=== PATIENT | male | born 1985 | race African-American/Black ===

== ENCOUNTER 2018-11-20 00:52 | Emergency (ER) | payer MEDICARE, OTHER ==
[2018-11-20 01:02] VITALS: BP 112/67; PULSE 66; RESP 18; TEMP 98.7
[2018-11-20] MEDS ORDERED: IBUPROFEN 400 MG TAB PO STA (01:35)
--- NOTE | 2018-11-20 01:35 | ED ---
General Adult HPI - General Chief complaint: Skin/Abscess/Foreign Body Stated complaint: L Hand Pain Time Seen by Provider: 11/20/18 01:04 Source: patient Mode of arrival: ambulatory Limitations: no limitations - History of Present Illness Initial comments: This patient is a 32-year-old man who presents to have evaluation of a small lump that is been developing his wrist. He noted a few days ago. He states that if he moves the wrist a lot it is a little tender. He denies other symptoms. No fever or chills. He does do work with his hands. Patient was concerned that it may be a result of a bite. -: days(s) Location: right, upper extremity Radiation: non-radiation Quality: dull Consistency: constant Improves with: none Worsens with: none Associated Symptoms: denies other symptoms - Related Data Previous Rx's Medication Instructions Recorded Ibuprofen [Motrin] 600 mg PO Q8HR PRN #20 tab 11/20/18 Allergies Allergy/AdvReac Type Severity Reaction Status Date / Time No Known Allergies Allergy Verified 11/20/18 01:02 Review of Systems ROS Statement: Those systems with pertinent positive or pertinent negative responses have been documented in the HPI. ROS Other: All systems not noted in ROS Statement are negative. Constitutional: Denies: fever, chills Respiratory: Denies: cough, dyspnea Musculoskeletal: Reports: as per HPI, other (Lump near the wrist) Skin: Reports: as per HPI. Denies: rash, lesions Past Medical History Past Medical History: No Reported History History of Any Multi-Drug Resistant Organisms: None Reported Past Surgical History: No Surgical Hx Reported Past Psychological History: Bipolar Smoking Status: Current some day smoker Past Alcohol Use History: Occasional Past Drug Use History: None Reported General Exam Limitations: no limitations General appearance: alert, in no apparent distress Respiratory exam: Present: normal lung sounds bilaterally. Absent: respiratory distress, wheezes, rales, rhonchi, stridor Cardiovascular Exam: Present: other (Patient's radial and ulnar pulse strong and symmetric. Cap refill normal) Extremities exam: Present: normal inspection, normal capillary refill, other (Patient has an approximately 2 cm ganglion cyst at the right wrist. No evidence of superinfection. Minimal tenderness associated. Motor and sensory exam throughout the hand normal) Neurological exam: Present: alert. Absent: motor sensory deficit Skin exam: Present: warm, dry, intact, normal color. Absent: rash Course Vital Signs 11/20/18 00:58 Temperature 98.7 F Pulse Rate 66 Respiratory 18 Rate Blood Pressure 112/67 O2 Sat by Pulse 99 Oximetry Disposition Clinical Impression: Ganglion cyst Disposition: HOME SELF-CARE Condition: Good Instructions (If sedation given, give patient instructions): Ganglion Cysts (ED) Prescriptions: Ibuprofen [Motrin] 600 mg PO Q8HR PRN #20 tab PRN Reason: Pain Is patient prescribed a controlled substance at d/c from ED?: No Referrals: None,Stated [Primary Care Provider] - 1-2 days Marlo Back MD [STAFF PHYSICIAN] - 1-2 days
== END 2018-11-20 01:55 | disposition home or self-care (01) ==
LOC: EC 00:52
DX: M67.431 Ganglion, right wrist (principal); M79.642 Pain in left hand; F17.200 Nicotine dependence, unspecified, uncomplicated
CPT/HCPCS: 99283

== ENCOUNTER 2019-01-15 04:00 | Emergency (ER) | payer MEDICARE, OTHER ==
[2019-01-15 04:07] VITALS: RESP 18
--- NOTE | 2019-01-15 05:29 | ED ---
General Adult HPI - General Chief complaint: Recheck/Abnormal Lab/Rx Stated complaint: Trouble sleeping Time Seen by Provider: 01/15/19 04:09 Source: family Mode of arrival: ambulatory Limitations: no limitations - History of Present Illness Initial comments: is a 33-year-old gentleman presents the ER today reporting that he has been unable to sleep more than a couple hours consecutively each night for the past 2 weeks. Patient states that this began a couple weeks ago, he didn't know why he can't sleep. Patient states that he lays down he falls asleep for 1-2 hours in the wakes up and has trouble falling back asleep. Patient states he feels tired throughout the days. Patient states that he has tried multiple things including drinking a lot of caffeine earlier in the day hoping that that will cause him to crash later in the evening but he still not able to sleep. Patient also states that he feels like there is fluid around his heart and that when he stands up he can feel his heart moving around in his chest. - Related Data Previous Rx's Medication Instructions Recorded Ibuprofen [Motrin] 600 mg PO Q8HR PRN #30 tab 01/15/19 Allergies Allergy/AdvReac Type Severity Reaction Status Date / Time No Known Allergies Allergy Verified 01/15/19 19:06 Review of Systems ROS Statement: Those systems with pertinent positive or pertinent negative responses have been documented in the HPI. ROS Other: All systems not noted in ROS Statement are negative. Past Medical History Past Medical History: No Reported History History of Any Multi-Drug Resistant Organisms: None Reported Past Surgical History: No Surgical Hx Reported Past Psychological History: Bipolar Smoking Status: Current some day smoker Past Alcohol Use History: Occasional Past Drug Use History: None Reported General Exam - General Exam Comments Initial Comments: Physical Exam GENERAL: Patient is well-developed and well-nourished. Patient is nontoxic and well- hydrated and is in no distress. HENT: Normocephalic, Atraumatic. EYES: PERRL, EOMI PULMONARY: Unlabored respirations. No audible rales rhonchi or wheezing was noted. CARDIOVASCULAR: There is a regular rate and rhythm without any murmurs gallops or rubs. ABDOMEN: Soft and nontender with normal bowel sounds. SKIN: Skin is clear with no lesions or rashes and otherwise unremarkable. : Deferred NEUROLOGIC: Patient is alert and oriented x3. Moving all extremities spontaneously MUSCULOSKELETAL: Normal extremities with adequate strength and full range of motion. No lower extremity swelling or edema. No calf tenderness. PSYCHIATRIC: Normal psychiatric evaluation. Limitations: no limitations Course Vital Signs 01/15/19 01/15/19 04:03 05:57 Temperature 98.0 F 98.6 F Pulse Rate 85 74 Respiratory 18 18 Rate Blood Pressure 128/80 123/82 O2 Sat by Pulse 98 98 Oximetry Medical Decision Making - Medical Decision Making The patient was seen and evaluated history is obtained from patient and signed patient reporting difficulty sleeping for the past 2 weeks duration he has not tried any [id number] sleep aids. Has not tried any melatonin. He does admit to very poor sleep habits. He does admit to excessive caffeine intake. Appropriate sleep hygiene was discussed with patient I advised I will prescribe melatonin that he should take prior to bedtime. I advised the patient to not look at his phone prior to going to bed not have too much stimulus including television or lights on before going to bed. We discussed going to bed same time everyday in a darkened room. Patient also concerned that there is fluid around his heart states that he feels his heart moving around when he stands up. Bedside ultrasound showed normal heart with no signs of pericardial effusion. Patient was reassured. I intended to discharge the patient however was called to an emergency and was able to put in the discharge order. Patient remained in the emergency department for over 2 hours, upon reevaluation the patient was sleeping soundly. At this time is still feel patient is stable for discharge home is clearly able to sleep well. Disposition Clinical Impression: Sleep disturbance Disposition: HOME SELF-CARE Condition: Stable Is patient prescribed a controlled substance at d/c from ED?: No Referrals: None,Stated [Primary Care Provider] - 1-2 days
[2019-01-15 06:02] VITALS: BP 123/82; PULSE 74; TEMP 98.6
== END 2019-01-15 06:02 | disposition home or self-care (01) ==
LOC: EC 04:00
DX: G47.9 Sleep disorder, unspecified (principal); F17.200 Nicotine dependence, unspecified, uncomplicated
CPT/HCPCS: 99283

== ENCOUNTER 2019-01-15 17:58 | Emergency (ER) | payer MEDICARE, OTHER ==
[2019-01-15 18:28] VITALS: RESP 18; TEMP 98.3
[2019-01-15] MEDS ORDERED: MELATONIN 5 MG TABLET PO STA (19:45)
--- NOTE | 2019-01-15 19:48 | ED ---
General Adult HPI - General Chief complaint: Anxiety Stated complaint: Anxiety Time Seen by Provider: 01/15/19 18:30 Source: patient Mode of arrival: ambulatory Limitations: no limitations - History of Present Illness Initial comments: Patient is a 33-year-old male presenting to emergency Department with complaints of trouble sleeping 1 day. Patient was in the ER today and was discharged approximately 6 AM this morning. Patient states he tried to go fill the prescription for melatonin however is not covered and he did not have money to pick [id number] for. Patient states he has an appointment with his PCP next week. He is denying any pain anywhere, fever, chills, nausea, vomiting, abdominal pain. Patient states he slept for approximately 2 hours today. Patient has no other complaints at this time. Upon arrival to ER, vital signs are stable. Patient is denying homicidal and suicidal thoughts today. - Related Data Previous Rx's Medication Instructions Recorded Ibuprofen [Motrin] 600 mg PO Q8HR PRN #30 tab 01/15/19 Allergies Allergy/AdvReac Type Severity Reaction Status Date / Time No Known Allergies Allergy Verified 01/15/19 19:06 Review of Systems ROS Statement: Those systems with pertinent positive or pertinent negative responses have been documented in the HPI. ROS Other: All systems not noted in ROS Statement are negative. Past Medical History Past Medical History: No Reported History History of Any Multi-Drug Resistant Organisms: None Reported Past Surgical History: No Surgical Hx Reported Past Psychological History: Bipolar Smoking Status: Current some day smoker Past Alcohol Use History: Occasional Past Drug Use History: None Reported General Exam - General Exam Comments Initial Comments: GENERAL: Well-appearing, well-nourished and in no acute distress. HEAD: Atraumatic, normocephalic. EYES: Pupils equal round and reactive to light, extraocular movements intact, sclera anicteric, conjunctiva are normal. ENT: TMs normal, nares patent, oropharynx clear without exudates. Moist mucous membranes. NECK: Normal range of motion, supple without lymphadenopathy or JVD. LUNGS: Breath sounds clear to auscultation bilaterally and equal. No wheezes rales or rhonchi. HEART: Regular rate and rhythm without murmurs, rubs or gallops. ABDOMEN: Soft, nontender, normoactive bowel sounds. No guarding, no rebound. No masses appreciated. : Deferred EXTREMITIES: Normal range of motion, no pitting or edema. No clubbing or cyanosis. NEUROLOGICAL: Cranial nerves II through XII grossly intact. Normal speech, normal gait. PSYCH: Normal mood, normal affect. SKIN: Warm, Dry, normal turgor, no rashes or lesions noted. Limitations: no limitations Course Vital Signs 01/15/19 18:25 Temperature 98.3 F Pulse Rate 76 Respiratory 18 Rate Blood Pressure 108/72 O2 Sat by Pulse 99 Oximetry Medical Decision Making - Medical Decision Making Patient is a 33-year-old male presenting with trouble sleeping 2 days. Patient was in the ER and discharged approximately 16 this morning. Patient states he did not have the money for the melatonin prescribed to him and was not covered by insurance that he cannot get it. Patient's vital signs are normal. Patient denies pain, fever, chills, abdominal pain. Patient's exam is unremarkable today. Patient Requesting cough medicine with codeine, Motrin PM, stating they help him feel better. Patient was given 2 tablets of melatonin to take tonight when he gets home as well as a prescription for Motrin 600. Patient is stable for discharge. Return parameters were discussed with the patient and he verbalized understanding. Case discussed with Dr. Wooten. Disposition Clinical Impression: Sleep disturbance Disposition: HOME SELF-CARE Condition: Stable Instructions (If sedation given, give patient instructions): Generalized Anxiety Disorder (ED) Additional Instructions: Please return to the Emergency Department if symptoms worsen or any other concerns. Follow-up with PCP for further management. Prescriptions: Ibuprofen [Motrin] 600 mg PO Q8HR PRN #30 tab PRN Reason: Pain Is patient prescribed a controlled substance at d/c from ED?: No Referrals: Oneal Garcia MD [Primary Care Provider] - 1-2 days
[2019-01-15 20:01] VITALS: BP 128/74; PULSE 82
== END 2019-01-15 19:59 | disposition home or self-care (01) ==
LOC: EC 17:58
DX: G47.8 Other sleep disorders (principal); F41.9 Anxiety disorder, unspecified; F17.200 Nicotine dependence, unspecified, uncomplicated
CPT/HCPCS: 99283